=== PATIENT | female | born 2000 | race Caucasian/White ===

== ENCOUNTER 2018-03-31 21:02 | Emergency (ER) | payer BC, OTHER ==
[2018-03-31 21:35] VITALS: BP 135/75
--- NOTE | 2018-03-31 21:57 | RADIOLOGY REPORT (SQ) ---
EXAM DESCRIPTION: AP, lateral and oblique views of the left ankle CLINICAL HISTORY: 18 years Female, Stepped in pothole-injured L ankle COMPARISON: None. FINDINGS: No fracture or dislocation. Soft tissues are unremarkable. IMPRESSION: No acute abnormality.
[2018-03-31] MEDS ORDERED: ACETAMINOPHEN 325 MG TABLET PO ONE (22:09)
--- NOTE | 2018-03-31 22:32 | ER Document Report ---
HPI - HPI Patient complains to provider of: left ankle pain Time Seen by Provider: 03/31/18 21:32 Pain Level: 4 Context: Patient is a 18-year-old female presents to the emergency department after inverting her left ankle after accidentally stepping into a pothole. Patient denies falling onto her left knee or hip. Patient denies hitting her head, neck, back or any loss of consciousness or vomiting. Patient states she has been unable to put weight on the left ankle and has most of her pain located at the lateral malleolus. Past medical history: Crohn's Medications: None Allergies: None - REPRODUCTIVE Reproductive: DENIES: : - MUSCULOSKELETAL Musculoskeletal: REPORTS: Extremity pain - left ankle Past Medical History - General Information source: Patient - Social History Smoking Status: Never Smoker Frequency of alcohol use: None Drug Abuse: None Family History: Reviewed & Not Pertinent Patient has suicidal ideation: No Patient has homicidal ideation: No Renal/ Medical History: Denies: Hx Peritoneal Dialysis GI Medical History: Reports: Hx Crohn's Disease Past Surgical History: Reports: Hx Appendectomy - 04/09/2008 - Immunizations Immunizations up to date: Yes Hx Diphtheria, Pertussis, Tetanus Vaccination: Yes Vertical Provider Document - CONSTITUTIONAL Agree With Documented VS: Yes Notes: GENERAL: Alert, interacts well. No acute distress. HEAD: Normocephalic, atraumatic. EYES: Pupils equal, round, and reactive to light. Extraocular movements intact. ENT: Oral mucosa moist, tongue midline. NECK: Full range of motion. Supple. Trachea midline. LUNGS: Clear to auscultation bilaterally, no wheezes, rales, or rhonchi. No respiratory distress. HEART: Regular rate and rhythm. No murmur ABDOMEN: Soft, non-tender. Non-distended. Bowel sounds present in all 4 quadrants. EXTREMITIES: Moves all 4 extremities spontaneously. normal radial and dorsalis pedis pulses bilaterally. No cyanosis. Minor ecchymosis noted lateral malleolus left distal extremity, with minor swelling. Capillary refill less than 2 seconds left distal extremity. BACK: no cervical, thoracic, lumbar midline tenderness. No saddle anesthesia, normal distal neurovascular exam. NEUROLOGICAL: Alert and oriented x3. Normal speech. cranial nerves II through XII grossly intact PSYCH: Normal affect, normal mood. SKIN: Warm, dry, normal turgor. No rashes or lesions noted. - INFECTION CONTROL TRAVEL OUTSIDE OF THE [place] IN LAST 30 DAYS: No Course - Re-evaluation Re-evalutation: 03/31/18 22:32 X-rays revealed no signs of fractures at this time, discussed results at bedside with patient. Ankle stirrup and crutches given. Discussed following up with orthopedics and primary care provider. Patient stable for discharge. - Vital Signs Vital signs: Temp Pulse Resp BP Pulse Ox 98.6 F 81 18 135/75 H 99 03/31/18 21:34 03/31/18 21:34 03/31/18 21:34 03/31/18 21:34 03/31/18 21:34 Discharge - Discharge Clinical Impression: Ankle sprain Qualifiers: Encounter type: initial encounter Involved ligament of ankle: unspecified ligament Laterality: left Qualified Code(s): S93.402A - Sprain of unspecified ligament of left ankle, initial encounter Condition: Stable Disposition: HOME, SELF-CARE Instructions: Ankle Stirrup Splint ([facility]), Ice & Elevation ([facility]), Sprained Ankle ([facility]), Use of Crutches ([facility]) Additional Instructions: As we discussed you have been seen and treated in the emergency department for an ankle sprain. Please follow-up with your primary care provider and inevitably orthopedics if needed. Please take [id number] Tylenol and Motrin as needed. Please use splint and crutches as needed. Return to the emergency room for any other concerning symptoms. Referrals: MARKUS SEGURA NP [Primary Care Provider] - Follow up as needed ROB HAY DO [ACTIVE STAFF] - Follow up as needed
== END 2018-03-31 23:15 | disposition home or self-care (01) ==
LOC: ER 21:02
DX: S93.402A Sprain of unspecified ligament of left ankle, initial encounter (principal); M25.572 Pain in left ankle and joints of left foot; W17.2XXA Fall into hole, initial encounter
CPT/HCPCS: 99283; 73610; L1902